=== PATIENT | female | born 1970 | race Caucasian/White ===

== ENCOUNTER → 2023-01-23 | Emergency (ER) | payer SELFPAY ==
[~2023-01-23] VITALS: Ht 152.4 cm; Wt 59.0 kg
[2023-01-23 22:39] VITALS: BP 140/82
[2023-01-23 22:45] VITALS: BP 126/92
[2023-01-23 23:19] VITALS: BP 138/88
[2023-01-23 23:30] VITALS: BP 159/97
[2023-01-23 23:45] VITALS: BP 153/93
[2023-01-24 00:01] VITALS: BP 156/121
== END | disposition home or self-care (01) | DRG 159 ==
LOC: ED 22:34
PROC: 0RSDXZZ Reposition Left Temporomandibular Joint, External Approach (ICD-10-PCS; principal; 2023-01-23)
PROC: 0RSCXZZ Reposition Right Temporomandibular Joint, External Approach (ICD-10-PCS; 2023-01-23)
DX: M26.69 Other specified disorders of temporomandibular joint (principal); F17.200 Nicotine dependence, unspecified, uncomplicated

== ENCOUNTER 2023-04-11 19:33 | Emergency (ER) | payer SELFPAY ==
[2023-04-11] VITALS (11 sets, daily range): BP systolic 130–158; BP diastolic 87–119
[~2023-04-11] VITALS: Ht 152.4 cm; Wt 54.2 kg
[2023-04-11 22:14] LABS: BASO% 0.6 % (0-3); EOS% 3.7 % (0-8); HEMOGLOBIN 10.9 g/dl (12.0-16.0); IMMATURE GRANULOCYTES 0.3 % (0.0-5.0); LYMPH% 33.3 % (15-41); MEAN CELL VOLUME 103.1 fL CALC (80.0-100.0); MEAN CORPUSCULAR HGB 34.1 pG CALC (26.0-32.0); MONO% 10.8 % (2-13); NEUT# 1.66 thou/uL (2.00-7.15); NEUT% 51.3 % (42-76); RED BLOOD COUNT 3.2 mill/uL (4.20-5.60); RED CELL DISTRI WIDTH 14.1 % (11.5-15.5)
[2023-04-11 22:27] LABS: ALBUMIN 3.7 g/dL (3.2-5.0); ALKALINE PHOSPHATASE 109 u/l (38-126); ANION GAP 8 (6-22 (CALC)); BILIRUBIN, TOTAL 1.6 mg/dL (0.02-1.3); BUN 12 mg/dL (7-17); BUN/CREATININE RATIO 16 (12-20 (CALC)); CARBON DIOXIDE 24 mmol/l (22-30); CHLORIDE 115 mmol/l (95-108); CREATININE 0.7 mg/dL (0.5-1.0); GFR FOR AFR.AMER. > 60 ML/MIN (>=60 (CALC)); GFR OTHER RACES > 60 ML/MIN (>=60 (CALC)); POTASSIUM 3.3 mmol/l (3.5-5.1); SGOT/AST 61 u/l (14-36); SODIUM 144 mmol/l (137-146); TOTAL PROTEIN 7.4 g/dL (6.3-8.2)
[2023-04-12] VITALS: BP 153/94
[2023-04-12 00:15] VITALS: BP 130/90
[2023-04-12 00:30] VITALS: BP 138/98
[2023-04-12 00:45] VITALS: BP 140/87
[2023-04-12 01:19] LABS: URINE BILIRUBIN - DIPSTICK NEGATIVE (NEGATIVE); URINE BLOOD DIPSTICK TRACE-INTACT (NEGATIVE); URINE COLOR YELLOW; URINE GLUCOSE - DIPSTICK NEGATIVE (NEGATIVE); URINE KETONE NEGATIVE (NEGATIVE); URINE LEUK ESTERASE TRACE (NEGATIVE); URINE PH 7.5 (4.5-8.0); URINE PROTEIN - DIPSTICK NEGATIVE (NEG-TRACE); URINE SPECIFIC GRAVITY 1.015
[2023-04-12 01:25] LABS: URINE NITRITE - DIPSTICK NEGATIVE (Negative)
[2023-04-12 04:30] VITALS: BP 140/87
== END 2023-04-12 04:45 | disposition home or self-care (01) | DRG 556 ==
LOC: ED 19:33
PROVIDERS: Emergency Medicine
DX: M79.89 Other specified soft tissue disorders (principal); B19.10 Unspecified viral hepatitis B without hepatic coma; B19.20 Unspecified viral hepatitis C without hepatic coma; F17.210 Nicotine dependence, cigarettes, uncomplicated
CPT/HCPCS: Q9967